=== PATIENT | female | born 1990 | race Caucasian/White ===

== ENCOUNTER 2017-12-25 14:02 | Inpatient (IN) | payer OTHER, MEDICAID ==
[2017-12-25 15:25] LABS: ALANINE AMINOTRANSFERASE 290 IU/L (13-69); ALBUMIN 3.1 g/dl (3.3-4.9); ALKALINE PHOSPHATASE 264 IU/L (42-121); ASPARTATE AMINO TRANSFERASE 222 IU/L (15-46); BILIRUBIN,INDIRECT 0.2 mg/dl (0-1.1); BILIRUBIN,TOTAL 0.2 mg/dl (0.2-1.3); TOTAL PROTEIN 6.4 g/dl (6.1-8.1)
[2017-12-25 17:09] LABS: HEPATITIS B SURFACE ANTIGEN NEGATIVE (NEGATIVE)
[2017-12-25] MEDS: LACTATED RINGER'S 1,000 ML IV (17:15)
[2017-12-25] MEDS: BETAMET NA PHOS/AC(6 MG/ML) 5ML INJ IM (17:18)
[2017-12-25 17:28] LABS: HEPATITIS B SURFACE ANTIBODY NEGATIVE (NEGATIVE); HEPATITIS C VIRAL ANTIBODY NEGATIVE (NEGATIVE)
[2017-12-25] MEDS: URSODIOL 300 MG CAP PO (22:13)
[2017-12-26] MEDS: LACTATED RINGER'S 1,000 ML IV ×5 (00:52→21:55)
[2017-12-26] MEDS: FERROUS SULFATE (EC) 325 MG TAB PO (08:39)
[2017-12-26] MEDS: PRENATAL VITAMIN PO (08:39)
[2017-12-26] MEDS: DOCUSATE SODIUM 100 MG CAP PO (08:39)
[2017-12-26] MEDS: URSODIOL 300 MG CAP PO ×3 (08:39→21:55)
[2017-12-26 15:21] LABS: ALANINE AMINOTRANSFERASE 348 IU/L (13-69); ALKALINE PHOSPHATASE 260 IU/L (42-121); ASPARTATE AMINO TRANSFERASE 296 IU/L (15-46); BILIRUBIN,INDIRECT 0.2 mg/dl (0-1.1); BILIRUBIN,TOTAL 0.2 mg/dl (0.2-1.3)
[2017-12-26] MEDS: BETAMET NA PHOS/AC(6 MG/ML) 5ML INJ IM (17:03)
[2017-12-26] MEDS ORDERED: CARBOPROST 250 MCG INJ IM (17:30)
[2017-12-26] MEDS ORDERED: MISOPROSTOL 200 MCG TAB PR (17:30)
[2017-12-26] MEDS ORDERED: METHYLERGONOVINE 0.2 MG INJ IM (17:30)
[2017-12-26] MEDS ORDERED: CEFAZOLIN 2 GM/50 ML (PMX) 50 ML IV (17:30)
[2017-12-26] MEDS ORDERED: OXYTOCIN 30 UNITS/LR 500 ML IV (17:30)
[2017-12-26 17:54] LABS: ADD MAN DIFF? NO
[2017-12-26 17:56] LABS: BASOPHILS % 0.1 % (0.0-2.0); EOSINOPHILS % 0.1 % (0.0-7.0); HEMATOCRIT 28.9 % (37.0-47.0); LYMPHOCYTES # 1.9 10^3/ul (0.8-2.9); LYMPHOCYTES % 17.5 % (15.0-51.0); MEAN CORPUSCULAR HEMOGLOBIN 22.7 pg (29.0-33.0); MEAN CORPUSCULAR HGB CONC 31.1 g/dl (32.0-37.0); MEAN CORPUSCULAR VOLUME 72.8 fl (82.0-101.0); MEAN PLATELET VOLUME 10.4 fl (7.4-10.4); MONOCYTE # 0.8 10^3/ul (0.3-0.9); MONOCYTES % 7.3 % (0.0-11.0); NEUTROPHIL # 7.8 10^3/ul (1.6-7.5); NEUTROPHILS % 73.5 % (39.0-77.0); NUCLEATED RED BLOOD CELLS # 0.1 10^3/ul (0.0-0.0); NUCLEATED RED BLOOD CELLS% 0.8 /100WBC (0.0-0.0); PLATELET COUNT 423 10^3/UL (140-415); RED BLOOD COUNT 3.97 10^6/ul (4.20-5.40)
[2017-12-26 17:56] LABS: WHITE BLOOD COUNT 10.6 10^3/ul (4.8-10.8)
[2017-12-26 18:26] LABS: INR 0.93; PROTIME 12.6 Sec (11.9-14.9)
[2017-12-26 20:39] LABS: RAPID PLASMA REAGIN NONREACTIVE (NR)
[2017-12-26] MEDS ORDERED: morphine SULFATE/PF (10 MG/10 ML) INJ (23:25)
[2017-12-26] MEDS ORDERED: BUPIVACAINE 0.75%/DEXT (SPINAL) 2 ML INJ (23:26)
[2017-12-26] MEDS ORDERED: PHENYLephrine (100 MCG/ML) 5ML SYG ×3 (23:36→23:49)
[2017-12-26] MEDS ORDERED: DEXAMETHASONE 4 MG/ML 1 ML INJ (23:38)
[2017-12-26] MEDS ORDERED: ONDANSETRON 4 MG INJ (23:54)
[2017-12-27] MEDS ORDERED: NALOXONE (0.4 MG/ML) INJ IV (00:30)
[2017-12-27] MEDS ORDERED: ZOLPIDEM 5 MG TAB PO (00:30)
[2017-12-27] MEDS ORDERED: morphine 2 MG INJ IV ×2 (00:30)
[2017-12-27] MEDS ORDERED: ONDANSETRON 4 MG INJ IV (00:30)
[2017-12-27] MEDS ORDERED: CARBOPROST 250 MCG INJ IM (01:00)
[2017-12-27] MEDS ORDERED: OXYTOCIN 30 UNITS/LR 500 ML IV (01:00)
[2017-12-27] MEDS ORDERED: LANOLIN 7 GM TUBE TOP (01:00)
[2017-12-27] MEDS ORDERED: MISOPROSTOL 200 MCG TAB PR (01:00)
[2017-12-27] MEDS ORDERED: METHYLERGONOVINE 0.2 MG INJ IM (01:00)
[2017-12-27] MEDS: DIPHENHYDRAMINE 50 MG INJ IV (02:26)
[2017-12-27] MEDS: OXYTOCIN 30 UNITS/LR 500 ML IV (02:29)
[2017-12-27] MEDS: LACTATED RINGER'S 1,000 ML IV ×2 (06:30→14:26)
[2017-12-27] MEDS: CEFAZOLIN 2 GM/50 ML (PMX) 50 ML IV ×2 (08:00→16:57)
[2017-12-27] MEDS: URSODIOL 300 MG CAP PO ×2 (09:03→22:06)
[2017-12-27] MEDS: SENNA/DOCUSATE NA (8.6MG/50MG) TAB PO ×2 (09:03→22:06)
[2017-12-27] MEDS: KETOROLAC 30 MG INJ IV (10:40)
[2017-12-28] MEDS: CEFAZOLIN 2 GM/50 ML (PMX) 50 ML IV (00:19)
[2017-12-28] MEDS: LACTATED RINGER'S 1,000 ML IV ×2 (01:14→09:12)
[2017-12-28] MEDS: OXYCODONE/ACETAMINOPHEN (5/325) TAB PO ×2 (01:41→13:16)
[2017-12-28] MEDS: IBUPROFEN 600 MG TAB PO ×5 (05:59→23:32)
[2017-12-28 08:57] LABS: ADD MAN DIFF? NO
[2017-12-28 09:00] LABS: WHITE BLOOD COUNT 14.2 10^3/ul (4.8-10.8)
[2017-12-28 09:01] LABS: BASOPHILS % 0.2 % (0.0-2.0); EOSINOPHILS % 0.2 % (0.0-7.0); HEMATOCRIT 28.5 % (37.0-47.0); HEMOGLOBIN 8.4 g/dl (12.0-16.0); LYMPHOCYTES # 3.2 10^3/ul (0.8-2.9); LYMPHOCYTES % 22.3 % (15.0-51.0); MEAN CORPUSCULAR HGB CONC 29.5 g/dl (32.0-37.0); MEAN CORPUSCULAR VOLUME 74.8 fl (82.0-101.0); MEAN PLATELET VOLUME 10.7 fl (7.4-10.4); MONOCYTE # 1.4 10^3/ul (0.3-0.9); MONOCYTES % 9.5 % (0.0-11.0); NEUTROPHIL # 9.5 10^3/ul (1.6-7.5); NEUTROPHILS % 66.7 % (39.0-77.0); NUCLEATED RED BLOOD CELLS # 0.1 10^3/ul (0.0-0.0); NUCLEATED RED BLOOD CELLS% 0.4 /100WBC (0.0-0.0); PLATELET COUNT 377 10^3/UL (140-415); RED BLOOD COUNT 3.81 10^6/ul (4.20-5.40); RED CELL DISTRIBUTION WIDTH 18.6 % (11.5-14.5)
[2017-12-28] MEDS: URSODIOL 300 MG CAP PO ×2 (09:11→20:53)
[2017-12-28] MEDS: SENNA/DOCUSATE NA (8.6MG/50MG) TAB PO ×2 (09:12→20:53)
[2017-12-29] MEDS: IBUPROFEN 600 MG TAB PO ×3 (06:00→17:47)
[2017-12-29] MEDS: SENNA/DOCUSATE NA (8.6MG/50MG) TAB PO ×2 (09:36→21:18)
[2017-12-29] MEDS: URSODIOL 300 MG CAP PO ×2 (09:36→21:18)
[2017-12-29] MEDS: OXYCODONE/ACETAMINOPHEN (5/325) TAB PO (09:59)
[2017-12-30] MEDS: IBUPROFEN 600 MG TAB PO ×3 (00:02→12:19)
[2017-12-30] MEDS: SENNA/DOCUSATE NA (8.6MG/50MG) TAB PO (10:35)
[2017-12-30] MEDS: URSODIOL 300 MG CAP PO (10:36)
[2017-12-31 15:48] LABS: CHENODEOXYCHOLIC ACID 4.3 umol/L (< OR = 3.1); CHOLIC ACID 5.6 umol/L (< OR = 1.8); DEOXYCHOLIC ACID 1.4 umol/L (< OR = 2.4); TOTAL BILE ACIDS 11.3 umol/L (< OR = 6.8)
== END 2017-12-30 13:15 | disposition home or self-care (01) | DRG 765 ==
LOC: OBT 14:02 → L-D 12-27 01:19 → PP1 12-27 04:34 → L-D 12-26 23:23 → OBT 16:00 → L-D 16:00
PROC: 10D00Z1 Extraction of Products of Conception, Low, Open Approach (ICD-10-PCS; principal; 2017-12-26 23:30)
PROC: 0UB70ZZ Excision of Bilateral Fallopian Tubes, Open Approach (ICD-10-PCS; 2017-12-26 23:30)
DX: O26.613 Liver and biliary tract disorders in pregnancy, third trimester (principal); K83.1 Obstruction of bile duct; Z3A.36 36 weeks gestation of pregnancy; Z37.0 Single live birth; Z30.2 Encounter for sterilization; O69.2XX0 Labor and delivery complicated by other cord entanglement, with compression, not applicable or unspecified; O34.211 Maternal care for low transverse scar from previous cesarean delivery
CPT/HCPCS: 76818; 80076; 83789; 85025; 85610; 85730; 86592; 86706; 86708; 86803; 86850; 86900; 86901; 86920; 87340; 88302; 99464